=== PATIENT | male | born 1945 | race African-American/Black ===

== ENCOUNTER 2018-08-29 11:19 | Inpatient (IN) | payer MEDICARE, BC ==
[~2018-08-29] VITALS: Ht 185.4 cm; Wt 134.0 kg
[2018-08-29] MEDS ORDERED: ASPIRIN 325 MG TABLET PO ONE (11:30)
[2018-08-29] MEDS ORDERED: NITROGLYCERIN SUBLINGUAL 0.4 MG BOTTLE OF 25. SL PRN ×2 (11:30→13:30)
--- NOTE | 2018-08-29 11:31 | PHYS DOC ---
Past Medical History Past Medical History: Depression, Hypertension Past Surgical History: Cancer Surgery, Gastric Bypass Additional Past Surgical Histo: LIPOSUCTION, SKIN REDUCTION Alcohol Use: None Drug Use: None Adult General Chief Complaint Chief Complaint: CHEST PAIN HPI HPI Patient is a 73 year old male with history of depression, hypertension, who presents to the ED today complaining of chest pain. She states he was working in his yard 30 minutes ago when he developed a 7 out of 10 sharp right sided chest pain, right jaw pain and shortness of breath. Patient states he stopped doing his yard work and went back to the house. He states the pain resolved. He states he came to the ED to be evaluated. He states his blood pressure medications as well as fat burning pills. He states has not had any of these symptoms before. He is denying any chest pain right now. He states he has history of diabetes but he lost a lot of weight and his blood sugar levels improved. Review of Systems Review of Systems Constitutional: Denies fever or chills [] Eyes: Denies change in visual acuity, redness, or eye pain [] HENT: Denies nasal congestion or sore throat [] Respiratory: Reports shortness of breath. Denies cough Cardiovascular: Reports right-sided chest pain, right jaw pain GI: Denies abdominal pain, nausea, vomiting, bloody stools or diarrhea [] : Denies dysuria or hematuria [] Musculoskeletal: Denies back pain or joint pain [] Integument: Denies rash or skin lesions [] Neurologic: Denies headache, focal weakness or sensory changes [] All other systems were reviewed and found to be within normal limits, except as documented in this note. Current Medications Current Medications Current Medications Medications (Trade) Dose Ordered Sig/Giovana Start Time Stop Time Status Last Admin Dose Admin Acetaminophen (Tylenol) 650 mg PRN Q4HRS PRN 08/29/18 13:30 08/30/18 13:29 Aspirin (Liliana Aspirin) 325 mg 1X ONCE 08/29/18 11:30 08/29/18 11:31 DC 08/29/18 11:45 325 MG Morphine Sulfate (Morphine Sulfate) 2 mg PRN Q2HR PRN 08/29/18 13:30 08/30/18 13:29 Nitroglycerin (Nitrostat) 0.4 mg PRN Q5MIN PRN 08/29/18 13:30 08/30/18 13:29 Ondansetron HCl (Zofran) 4 mg PRN Q8HRS PRN 08/29/18 13:30 08/30/18 13:29 Allergies Allergies Allergies Coded Allergies Type Severity Reaction Last Updated Verified No Known Drug Allergies 04/04/15 No Physical Exam Physical Exam Constitutional: Well developed, well nourished, no acute distress, non-toxic appearance. [] HENT: Normocephalic, atraumatic, bilateral external ears normal, oropharynx moist, no oral exudates, nose normal. [] Eyes: PERRLA, EOMI, conjunctiva normal, no discharge. [] Neck: Normal range of motion, no tenderness, supple, no stridor. [] Cardiovascular:Heart rate regular rhythm, no murmur [] Lungs & Thorax: Bilateral breath sounds clear to auscultation [] Abdomen: Bowel sounds normal, soft, no tenderness, no masses, no pulsatile masses. [] Skin: Warm, dry, no erythema, no rash. [] Back: No tenderness, no CVA tenderness. [] Extremities: No tenderness, no cyanosis, no clubbing, ROM intact, no edema. [] Neurologic: Alert and oriented X 3, normal motor function, normal sensory function, no focal deficits noted. +1 edema to bilateral lower extremities. Psychologic: Affect normal, judgement normal, mood normal. [] Current Patient Data Vital Signs Vital Signs Date Time Temp Pulse Resp B/P (MAP) Pulse Ox O2 Delivery O2 Flow Rate FiO2 08/29/18 13:03 60 18 152/67 (95) 98 Room Air 08/29/18 11:20 98.5 98.5 Lab Values Laboratory Tests Test 08/29/18 11:50 White Blood Count 5.3 x10^3/uL (4.0-11.0) Red Blood Count 4.85 x10^6/uL (4.30-5.70) Hemoglobin 13.3 g/dL (13.0-17.5) Hematocrit 40.1 % (39.0-53.0) Mean Corpuscular Volume 83 fL (79-100) Mean Corpuscular Hemoglobin 27 pg (25-35) Mean Corpuscular Hemoglobin Concent 33 g/dL (31-37) Red Cell Distribution Width 15.1 % (11.5-14.5) H Platelet Count 163 x10^3/uL (140-400) Neutrophils (%) (Auto) 49 % (31-73) Lymphocytes (%) (Auto) 32 % (24-48) Monocytes (%) (Auto) 11 % (0-9) H Eosinophils (%) (Auto) 7 % (0-3) H Basophils (%) (Auto) 1 % (0-3) Neutrophils # (Auto) 2.6 x10^3uL (1.8-7.7) Lymphocytes # (Auto) 1.7 x10^3/uL (1.0-4.8) Monocytes # (Auto) 0.6 x10^3/uL (0.0-1.1) Eosinophils # (Auto) 0.4 x10^3/uL (0.0-0.7) Basophils # (Auto) 0.1 x10^3/uL (0.0-0.2) Prothrombin Time 12.3 SEC (11.7-14.0) Prothrombin Time INR 0.9 (0.8-1.1) Sodium Level 143 mmol/L (136-145) Potassium Level 4.0 mmol/L (3.5-5.1) Chloride Level 105 mmol/L (98-107) Carbon Dioxide Level 28 mmol/L (21-32) Anion Gap 10 (6-14) Blood Urea Nitrogen 16 mg/dL (8-26) Creatinine 1.1 mg/dL (0.7-1.3) Estimated GFR (Cockcroft-Gault) 79.0 BUN/Creatinine Ratio 15 (6-20) Glucose Level 111 mg/dL (70-99) H Calcium Level 9.2 mg/dL (8.5-10.1) Magnesium Level 1.9 mg/dL (1.8-2.4) Total Bilirubin 0.4 mg/dL (0.2-1.0) Aspartate Amino Transferase (AST) 24 U/L (15-37) Alanine Aminotransferase (ALT) 31 U/L (16-63) Alkaline Phosphatase 71 U/L (46-116) Creatine Kinase 291 U/L (39-308) Creatine Kinase MB (Mass) 2.0 ng/mL (0.0-3.6) Creatine Kinase MB Relative Index 0.7 % (0-4) Troponin I Quantitative < 0.017 ng/mL (0.000-0.055) YH-Uih-O-Type Natriuretic Peptide 58 pg/mL (0-449) Total Protein 8.0 g/dL (6.4-8.2) Albumin 3.8 g/dL (3.4-5.0) Albumin/Globulin Ratio 0.9 (1.0-1.7) L Laboratory Tests 08/29/18 11:50 Laboratory Tests 08/29/18 11:50 EKG EKG [address] Grimm sinus rhythm HR 66 no STEMI[] Radiology/Procedures Radiology/Procedures []PROCEDURE: PORTABLE CHEST 1V PORTABLE CHEST 1V History: CHEST PAIN Comparison: May 17, 2011 Findings: Single view of the chest is submitted. There is again degree of elevation of the left hemidiaphragm. There is no lobar infiltrate, pleural fluid, pneumothorax. There is now a right shoulder arthroplasty. Heart size is similar. There is again somewhat tortuous thoracic aorta. Impression: 1. There is no radiographic evidence of acute cardiopulmonary disease. Electronically signed by: Merlin Kimball MD (08/29/2018 11:46 AM) [id number] DICTATED and SIGNED BY: MERLIN KIMBALL MD DATE: 08/29/18 1146 Course & Med Decision Making Course & Med Decision Making Pertinent Labs and Imaging studies reviewed. (See chart for details) This is a 73-year-old male patient presented to the ED today with right sided chest pain, jaw pain, and shortness of breath symptoms began 30 minutes ago while working in his yard. He currently denies any pain/symptoms. Cardiac work up is negative. Heart score 4. Patient will be admitted. Consulted with Greg DIRECTOR CHILD for Dr. Dumont shoe sticks repairer who will f/u with patient Consulted with Dr. Jha who accepted patient for admission. Dragon Disclaimer Dragon Disclaimer This electronic medical record was generated, in whole or in part, using a voice recognition dictation system. Departure Departure Impression: Primary Impression: Chest pain Disposition: ADMITTED INPATIENT Condition: STABLE Referrals: RUDDY JUNE MD (PCP) Problem Qualifiers Primary Impression: Chest pain Chest pain type: unspecified Qualified Codes: R07.9 - Chest pain, unspecified MUTUNGA,ALEX NETWORK SUPPORT TECHNICIAN Aug 29, 2018 11:31
--- NOTE | 2018-08-29 11:49 | RAD ---
PORTABLE CHEST 1V History: CHEST PAIN Comparison: May 17, 2011 Findings: Single view of the chest is submitted. There is again degree of elevation of the left hemidiaphragm. There is no lobar infiltrate, pleural fluid, pneumothorax. There is now a right shoulder arthroplasty. Heart size is similar. There is again somewhat tortuous thoracic aorta. Impression: 1. There is no radiographic evidence of acute cardiopulmonary disease. Electronically signed by: Nigel Sage MD (08/29/2018 11:46 AM) [id number]
[2018-08-29 12:04] LABS: BASO # 0.1 x10^3/uL (0.0-0.2); BASO % 1 % (0-3); EOS # 0.4 x10^3/uL (0.0-0.7); EOS % 7 % (0-3); HEMATOCRIT 40.1 % (39.0-53.0); HEMOGLOBIN 13.3 g/dL (13.0-17.5); LYMPH # 1.7 x10^3/uL (1.0-4.8); LYMPH % 32 % (24-48); MEAN CORPUSCULAR HEMOGLOBIN 27 pg (25-35); MEAN CORPUSCULAR HGB CONC 33 g/dL (31-37); MEAN CORPUSCULAR VOLUME 83 fL (79-100); MONO # 0.6 x10^3/uL (0.0-1.1); MONO % 11 % (0-9); NEUT # 2.6 x10^3uL (1.8-7.7); NEUT % 49 % (31-73); PLATELET COUNT 163 x10^3/uL (140-400); RED BLOOD COUNT 4.85 x10^6/uL (4.30-5.70); RED CELL DISTRIBUTION WIDTH 15.1 % (11.5-14.5); WHITE BLOOD COUNT 5.3 x10^3/uL (4.0-11.0)
[2018-08-29 12:16] LABS: PROTHROMBIN TIME PATIENT 12.3 SEC (11.7-14.0)
[2018-08-29 12:29] LABS: CALCIUM 9.2 mg/dL (8.5-10.1); CREATININE 1.1 mg/dL (0.7-1.3)
[2018-08-29 12:40] LABS: ALBUMIN 3.8 g/dL (3.4-5.0); ALBUMIN/GLOBULIN RATIO 0.9 (1.0-1.7); MAGNESIUM 1.9 mg/dL (1.8-2.4); TOTAL BILIRUBIN 0.4 mg/dL (0.2-1.0)
--- NOTE | 2018-08-29 13:20 | EKG ---
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
[2018-08-29] MEDS ORDERED: ONDANSETRON PF 4 MG/2 ML VIAL. IV PRN (13:30)
[2018-08-29] MEDS ORDERED: MORPHINE SULFATE 2 MG/ML VIAL. IV PRN (13:30)
[2018-08-29] MEDS ORDERED: ACETAMINOPHEN 325 MG TABLET. PO PRN (13:30)
[2018-08-29 13:50] LABS: BILIRUBIN,URINE NEGATIVE (NEG); CLARITY,URINE CLEAR; COLOR,URINE YELLOW; NITRITE,URINE NEGATIVE (NEG); PROTEIN,URINE 30 mg/dL (NEG-TRACE); UROBILINOGEN,URINE 0.2 mg/dL (0.2 mg/dL)
[2018-08-29 14:05] LABS: BACTERIA,URINE 0 /HPF (0-FEW); RBC,URINE 0 /HPF (0-2); SQUAMOUS EPITHELIAL CELL,UR OCC /LPF; WBC,URINE OCC /HPF (0-4)
[2018-08-29] MEDS ORDERED: LABETALOL 20 MG/4 ML DISP.SYRIN. IVP PRN (14:30)
--- NOTE | 2018-08-29 14:42 | PDOC2 ---
KRYSTAL PEDERSEN ENERGY SPECIALIST 08/29/18 1442: CARDIAC CONSULT DATE OF CONSULT Date of Consult DATE: 08/29/18 TIME: 14:30 REASON FOR CONSULT Reason for Consult: Chest pain REFERRING PHYSICIAN Referring Physician: Lon SOURCE Source: Chart review, Patient HISTORY OF PRESENT ILLNESS HISTORY OF PRESENT ILLNESS This is a pleasant 73 yo male admitted for complains of chest pain. Reports that every now and then he has this chest tightness but goes away right away. He was removing weeds on hi lawn and suddenly he felt this midchest tightness and pressure, with jaw tightness on the right side associated with some SOA and diaphoresis. No palpitations, or nausea. This intensified for about 30 minutes then started fading away on the way to ED. No heartburn, past hx of PUD , CAD or any arrhythmias. He was diabetic before and was taken off meds after losing much wt after gastric sleeve in 2010 but has gained about 30 to 40 pounds in the last 4 months. Denies any recent long distance travel, VTE, falls or any other recent injury. 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 He has HTN and HLP. Negative for orthopnea or PND PAST MEDICAL HISTORY Cardiovascular: HTN, Hyperlipidemia Pulmonary: Other (XIMENA past CPAP and took self of it due to cost but repeat workup is pending) CENTRAL NERVOUS SYSTEM: Other (No pertinent history) GI: Other (prior gastric sleeve) Heme/Onc: No pertinent hx Hepatobiliary: No pertinent hx Psych: No pertinent hx Musculoskeletal: Osteoarthritis Rheumatologic: No pertinent hx Infectious disease: No pertinent hx ENT: Other (cataract) Renal/: Prostate Ca., Other (ED) Endocrine: Diabetes (past type 2) Dermatology: No pertinent hx PAST SURGICAL HISTORY Past Surgical History: Arthroscopy (RTSA), Cataract Removal, Other (prostate resection; penile implant; LHC) FAMILY HISTORY Family History noncontributory to CV SOCIAL HISTORY Smoke: Quit (30 pk yr) ALCOHOL: occassional Drugs: None Lives: with Family CURRENT MEDICATIONS CURRENT MEDICATIONS Current Medications Medications (Trade) Dose Ordered Sig/Giovana Route PRN Reason Start Time Stop Time Status Last Admin Dose Admin Aspirin (Liliana Aspirin) 325 mg 1X ONCE PO 08/29/18 11:30 08/29/18 11:31 DC 08/29/18 11:45 ALLERGIES ALLERGIES: Coded Allergies: No Known Drug Allergies (Unverified , 04/04/15) ROS Review of System 14 point ROS evaluated with pertinent positives noted per HPI PHYSICAL EXAM General: Alert, Oriented X3, Cooperative, No acute distress HEENT: Atraumatic, Mucous membr. moist/pink Lungs: Clear to auscultation, Normal air movement Heart: Regular rate (SR), Normal S1, Normal S2, Other (2/6 systolic murmur to LLS border) Extremities: No cyanosis, Other (1+ bilateral LE pitting edema) Skin: No breakdown, No significant lesion Neuro: Normal speech, Sensation intact Psych/Mental Status: Mental status NL, Mood NL MUSCULOSKELETAL: Osteoarthritic changes both hands VITALS VITALS Vital Signs Date Time Temp Pulse Resp B/P (MAP) Pulse Ox O2 Delivery O2 Flow Rate FiO2 08/29/18 13:03 60 18 152/67 (95) 98 Room Air 08/29/18 11:20 98.5 98.5 LABS Lab: Laboratory Tests Test 08/29/18 11:50 08/29/18 13:25 White Blood Count 5.3 x10^3/uL (4.0-11.0) Red Blood Count 4.85 x10^6/uL (4.30-5.70) Hemoglobin 13.3 g/dL (13.0-17.5) Hematocrit 40.1 % (39.0-53.0) Mean Corpuscular Volume 83 fL (79-100) Mean Corpuscular Hemoglobin 27 pg (25-35) Mean Corpuscular Hemoglobin Concent 33 g/dL (31-37) Red Cell Distribution Width 15.1 % (11.5-14.5) Platelet Count 163 x10^3/uL (140-400) Neutrophils (%) (Auto) 49 % (31-73) Lymphocytes (%) (Auto) 32 % (24-48) Monocytes (%) (Auto) 11 % (0-9) Eosinophils (%) (Auto) 7 % (0-3) Basophils (%) (Auto) 1 % (0-3) Neutrophils # (Auto) 2.6 x10^3uL (1.8-7.7) Lymphocytes # (Auto) 1.7 x10^3/uL (1.0-4.8) Monocytes # (Auto) 0.6 x10^3/uL (0.0-1.1) Eosinophils # (Auto) 0.4 x10^3/uL (0.0-0.7) Basophils # (Auto) 0.1 x10^3/uL (0.0-0.2) Prothrombin Time 12.3 SEC (11.7-14.0) Prothromb Time International Ratio 0.9 (0.8-1.1) Sodium Level 143 mmol/L (136-145) Potassium Level 4.0 mmol/L (3.5-5.1) Chloride Level 105 mmol/L (98-107) Carbon Dioxide Level 28 mmol/L (21-32) Anion Gap 10 (6-14) Blood Urea Nitrogen 16 mg/dL (8-26) Creatinine 1.1 mg/dL (0.7-1.3) Estimated GFR (Cockcroft-Gault) 79.0 BUN/Creatinine Ratio 15 (6-20) Glucose Level 111 mg/dL (70-99) Calcium Level 9.2 mg/dL (8.5-10.1) Magnesium Level 1.9 mg/dL (1.8-2.4) Total Bilirubin 0.4 mg/dL (0.2-1.0) Aspartate Amino Transf (AST/SGOT) 24 U/L (15-37) Alanine Aminotransferase (ALT/SGPT) 31 U/L (16-63) Alkaline Phosphatase 71 U/L (46-116) Creatine Kinase 291 U/L (39-308) Creatine Kinase MB (Mass) 2.0 ng/mL (0.0-3.6) Creatine Kinase MB Relative Index 0.7 % (0-4) Troponin I Quantitative < 0.017 ng/mL (0.000-0.055) CP-Xqd-P-Type Natriuretic Peptide 58 pg/mL (0-449) Total Protein 8.0 g/dL (6.4-8.2) Albumin 3.8 g/dL (3.4-5.0) Albumin/Globulin Ratio 0.9 (1.0-1.7) Urine Color Yellow Urine Clarity Clear Urine pH 6.0 Urine Specific [place] 1.010 Urine Protein 30 mg/dL (NEG-TRACE) Urine Glucose (UA) Negative mg/dL (NEG) Urine Ketones (Stick) Negative mg/dL (NEG) Urine Blood Negative (NEG) Urine Nitrite Negative (NEG) Urine Bilirubin Negative (NEG) Urine Urobilinogen Dipstick 0.2 mg/dL (0.2 mg/dL) Urine Leukocyte Esterase Negative (NEG) Urine RBC 0 /HPF (0-2) Urine WBC Occ /HPF (0-4) Urine Squamous Epithelial Cells Occ /LPF Urine Bacteria 0 /HPF (0-FEW) ASSESSMENT/PLAN ASSESSMENT/PLAN 1. Chest pain: UA features with anterolateral T wave changes 2. HTN: labile 3. HLP 4. Hx of DM2: taken off due to wt loss from gastric sleeve in 2010 5. Morbid obesity with XIMENA; recent 30-40 lb wt gain in 4 months. Recommendations 1. Labteolol IV PRN. will obtain accurate meds list 2. Lipids, TSH, TTE. Trend troponin 3. ASA, lovenox, 4. LHC tomorrow, risks and benefits discussed and agreeable to proceed 5. Discussed to minimize caffeine use MAKENNA HILL MD 08/29/18 1830: CARDIAC CONSULT ASSESSMENT/PLAN ASSESSMENT/PLAN Pt. seen and examined. Agree with above ACTIVE DIRECTORY SPECIALIST note. 73 y.o male with hypertension presenting with symptoms suggestive of ACS. Needs better BP control. CP may be high BP and may also be cardiac. EKG suggestive of LVH, Echo wnl. Trop negative. Discussed r/b/a to medical therapy versus stress testing versus cath - patient prefers medical therapy which is reasonable. Continue home amlodipine. Start Metoprolol 25mg XL daily. Start atorvastatin and start imdur 30mg daily KRYSTAL PEDERSEN ENERGY SPECIALIST Aug 29, 2018 14:42 MAKENNA HILL MD Aug 29, 2018 18:30
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
--- NOTE | 2018-08-29 16:32 | NUR ---
Patient arrived to room 261 via wheelchair from ER at 1632. at bedside. Patient A&OX4. No complaints of pain at this time. The patient, LAVONNE BARRERA, 73 y/o, M admitted by JENNIFER PITTMAN MD, was given written information regarding hospital policies, unit procedures and contact persons. Valuables were checked and noted. Consents signed for heart cath. went home to get list of home medications, will notify night nurse to put in computer. Will continue to monitor.
[2018-08-29] MEDS ORDERED: FLUT16SP INH (17:21)
--- NOTE | 2018-08-29 17:22 | CARD ---
MR#: [id number] Date of Study: 08/29/2018 Ordering Physician: KRYSTAL PEDERSEN, Referring Physician: JENNIFER PITTMAN, Tech: Nadine Perez APPROVED REPORT EXAM: Two-dimensional and M-mode echocardiogram with Doppler and color Doppler. Other Information Quality : GoodHR: 67bpm Rhythm : NSR INDICATION Dyspnea Acute coronary syndrome RISK FACTORS Hypertension Hyperlipidemia 2D DIMENSIONS RVDd2.6 (2.9-3.5cm)Left Atrium(2D)3.6 (1.6-4.0cm) IVSd1.7 (0.7-1.1cm)Aortic Root(2D)3.4 (2.0-3.7cm) LVDd4.8 (3.9-5.9cm)LVOT Diameter2.2 (1.8-2.4cm) PWd1.0 (0.7-1.1cm)LVDs3.1 (2.5-4.0cm) FS (%) 34.9 %SV69.4 ml LVEF(%)64.0 (>50%) Aortic Valve AoV Peak Obed.148.7cm/sAoV VTI32.0cm AO Peak GR.8.8mmHgLVOT Peak Obed.94.8cm/s AO Mean GR.5mmHgAVA (VMAX)2.48cm2 Mitral Valve MV E Nywwsdfk23.4cm/sMV DECEL NDSI227ov MV A Edsqfabk152.1cm/sE/A Ratio0.7 Pulmonary Valve PV Peak Zfrqgpdh883.1cm/s Pulmonary Vein S1 Ozmryqnb58.3cm/sD2 Lwgfmrrh04.5cm/s PVa [id number] LEFT VENTRICLE The left ventricle is normal size. There is mild to moderate concentric left ventricular hypertrophy. The left ventricular systolic function is normal and the ejection fraction is within normal range. T he Ejection Fraction is >55%. There is normal LV segmental wall motion. Transmitral Doppler flow avis james is Grade I-abnormal relaxation pattern. RIGHT VENTRICLE The right ventricle is normal size. There is normal right ventricular wall thickness. The right ventr icular systolic function is normal. ATRIA The left atrium is borderline dilated. The right atrium size is normal. The interatrial septum is int act with no evidence for an atrial septal defect or patent foramen ovale as noted on 2-D or Doppler i maging. AORTIC VALVE The aortic valve is normal in structure and function. Doppler and Color Flow revealed no significant aortic regurgitation. There is no significant aortic valvular stenosis. MITRAL VALVE The mitral valve is normal in structure and function. There is no evidence of mitral valve prolapse. There is no mitral valve stenosis. Doppler and Color Flow revealed no mitral valve regurgitation note d. TRICUSPID VALVE The tricuspid valve is normal in structure and function. Doppler and Color Flow revealed no tricuspid valve regurgitation noted. There is no tricuspid valve stenosis. PULMONIC VALVE The pulmonic valve is not well visualized. Doppler and Color Flow revealed trace pulmonic valvular re gurgitation. GREAT VESSELS The aortic root is normal in size. The IVC was not visualized. PERICARDIAL EFFUSION There is no evidence of significant pericardial effusion. Critical Notification Critical Value: No <Conclusion> The left ventricular systolic function is normal and the ejection fraction is within normal range. Th e Ejection Fraction is >55%. There is normal LV segmental wall motion. Signed by : Kavin Liu, Electronically Approved : 08/29/2018 17:22:20
[2018-08-29] MEDS ORDERED: METOPROLOL SUCC 24HR ER 25 MG TAB.ER.24H. PO ONE (19:00)
[2018-08-29] MEDS ORDERED: amLODIPine BESYLATE 5 MG TABLET PO ONE (19:00)
[2018-08-29 19:30] VITALS: BP 178/81
[2018-08-29] MEDS ORDERED: ENOXAPARIN 40 MG/0.4 ML SYRINGE. SQ SCH (21:00)
[2018-08-29] MEDS ORDERED: AMLO10TA4 PO (22:05)
[2018-08-29 23:28] VITALS: BP 128/57
[2018-08-30 03:10] LABS: HEMOGLOBIN A1C 6.6 % (4.8-5.6)
[2018-08-30 03:42] VITALS: BP 154/77
[2018-08-30 05:43] LABS: CHOLESTEROL/HDL RATIO 2.7
[2018-08-30 07:00] VITALS: BP 136/61
[2018-08-30] MEDS ORDERED: ASPIRIN ENTERIC COATED 81 MG TABLET.DR. PO SCH (08:00)
[2018-08-30] MEDS ORDERED: METO-239 PO ×2 (08:05→11:53)
[2018-08-30] MEDS ORDERED: ATOR20TA58 PO (08:05)
[2018-08-30] MEDS ORDERED: ASPI-612 PO (08:05)
[2018-08-30] MEDS ORDERED: ISOS30TA4 PO (08:05)
[2018-08-30 08:41] LABS: BASO # 0.1 x10^3/uL (0.0-0.2); BASO % 1 % (0-3); EOS # 0.4 x10^3/uL (0.0-0.7); EOS % 6 % (0-3); HEMATOCRIT 40.6 % (39.0-53.0); HEMOGLOBIN 13.5 g/dL (13.0-17.5); LYMPH # 1.8 x10^3/uL (1.0-4.8); LYMPH % 33 % (24-48); MEAN CORPUSCULAR HEMOGLOBIN 28 pg (25-35); MEAN CORPUSCULAR HGB CONC 33 g/dL (31-37); MEAN CORPUSCULAR VOLUME 85 fL (79-100); MONO # 0.6 x10^3/uL (0.0-1.1); MONO % 11 % (0-9); NEUT # 2.7 x10^3uL (1.8-7.7); NEUT % 49 % (31-73); PLATELET COUNT 139 x10^3/uL (140-400); RED BLOOD COUNT 4.79 x10^6/uL (4.30-5.70); RED CELL DISTRIBUTION WIDTH 15.8 % (11.5-14.5); WHITE BLOOD COUNT 5.5 x10^3/uL (4.0-11.0)
[2018-08-30] MEDS ORDERED: METOPROLOL SUCC 24HR ER 25 MG TAB.ER.24H. PO SCH (09:00)
[2018-08-30] MEDS ORDERED: ISOSORBIDE MONONITRATE ER 30 MG TAB.ER.24H PO SCH (09:00)
[2018-08-30] MEDS ORDERED: amLODIPine BESYLATE 10 MG TABLET PO SCH (09:00)
--- NOTE | 2018-08-30 09:23 | PDOC3 ---
Discharge Summary Visit Information Date of Admission: Aug 29, 2018 Date of Discharge: Aug 30, 2018 Final Diagnosis Problems Medical Problems: (1) Chest pain Status: Acute Brief Hospital Course Allergies Allergies Coded Allergies Type Severity Reaction Last Updated Verified No Known Drug Allergies 04/04/15 No Vital Signs Vital Signs Date Time Temp Pulse Resp B/P (MAP) Pulse Ox O2 Delivery O2 Flow Rate FiO2 08/30/18 08:13 57 144/67 08/30/18 07:00 97.5 16 97 Room Air 97.5 Lab Results Laboratory Tests Test 08/29/18 11:50 08/29/18 13:25 08/29/18 14:45 08/29/18 18:05 White Blood Count 5.3 x10^3/uL (4.0-11.0) Red Blood Count 4.85 x10^6/uL (4.30-5.70) Hemoglobin 13.3 g/dL (13.0-17.5) Hematocrit 40.1 % (39.0-53.0) Mean Corpuscular Volume 83 fL (79-100) Mean Corpuscular Hemoglobin 27 pg (25-35) Mean Corpuscular Hemoglobin Concent 33 g/dL (31-37) Red Cell Distribution Width 15.1 % (11.5-14.5) Platelet Count 163 x10^3/uL (140-400) Neutrophils (%) (Auto) 49 % (31-73) Lymphocytes (%) (Auto) 32 % (24-48) Monocytes (%) (Auto) 11 % (0-9) Eosinophils (%) (Auto) 7 % (0-3) Basophils (%) (Auto) 1 % (0-3) Neutrophils # (Auto) 2.6 x10^3uL (1.8-7.7) Lymphocytes # (Auto) 1.7 x10^3/uL (1.0-4.8) Monocytes # (Auto) 0.6 x10^3/uL (0.0-1.1) Eosinophils # (Auto) 0.4 x10^3/uL (0.0-0.7) Basophils # (Auto) 0.1 x10^3/uL (0.0-0.2) Prothrombin Time 12.3 SEC (11.7-14.0) Prothromb Time International Ratio 0.9 (0.8-1.1) Sodium Level 143 mmol/L (136-145) Potassium Level 4.0 mmol/L (3.5-5.1) Chloride Level 105 mmol/L (98-107) Carbon Dioxide Level 28 mmol/L (21-32) Anion Gap 10 (6-14) Blood Urea Nitrogen 16 mg/dL (8-26) Creatinine 1.1 mg/dL (0.7-1.3) Estimated GFR (Cockcroft-Gault) 79.0 BUN/Creatinine Ratio 15 (6-20) Glucose Level 111 mg/dL (70-99) Hemoglobin A1c 6.6 % (4.8-5.6) Calcium Level 9.2 mg/dL (8.5-10.1) Magnesium Level 1.9 mg/dL (1.8-2.4) Total Bilirubin 0.4 mg/dL (0.2-1.0) Aspartate Amino Transf (AST/SGOT) 24 U/L (15-37) Alanine Aminotransferase (ALT/SGPT) 31 U/L (16-63) Alkaline Phosphatase 71 U/L (46-116) Creatine Kinase 291 U/L (39-308) Creatine Kinase MB (Mass) 2.0 ng/mL (0.0-3.6) Creatine Kinase MB Relative Index 0.7 % (0-4) Troponin I Quantitative < 0.017 ng/mL (0.000-0.055) < 0.017 ng/mL (0.000-0.055) < 0.017 ng/mL (0.000-0.055) MD-Jwb-T-Type Natriuretic Peptide 58 pg/mL (0-449) Total Protein 8.0 g/dL (6.4-8.2) Albumin 3.8 g/dL (3.4-5.0) Albumin/Globulin Ratio 0.9 (1.0-1.7) Thyroid Stimulating Hormone (TSH) 2.295 uIU/mL (0.358-3.74) Urine Color Yellow Urine Clarity Clear Urine pH 6.0 Urine Specific [place] 1.010 Urine Protein 30 mg/dL (NEG-TRACE) Urine Glucose (UA) Negative mg/dL (NEG) Urine Ketones (Stick) Negative mg/dL (NEG) Urine Blood Negative (NEG) Urine Nitrite Negative (NEG) Urine Bilirubin Negative (NEG) Urine Urobilinogen Dipstick 0.2 mg/dL (0.2 mg/dL) Urine Leukocyte Esterase Negative (NEG) Urine RBC 0 /HPF (0-2) Urine WBC Occ /HPF (0-4) Urine Squamous Epithelial Cells Occ /LPF Urine Bacteria 0 /HPF (0-FEW) Test 08/30/18 03:40 08/30/18 03:45 Triglycerides Level 94 mg/dL (0-150) Cholesterol Level 247 mg/dL (0-200) LDL Cholesterol, Calculated 138 mg/dL (0-100) VLDL Cholesterol, Calculated 19 mg/dL (0-40) Non-HDL Cholesterol Calculated 157 mg/dL (0-129) HDL Cholesterol 90 mg/dL (40-60) Cholesterol/HDL Ratio 2.7 White Blood Count 5.5 x10^3/uL (4.0-11.0) Red Blood Count 4.79 x10^6/uL (4.30-5.70) Hemoglobin 13.5 g/dL (13.0-17.5) Hematocrit 40.6 % (39.0-53.0) Mean Corpuscular Volume 85 fL (79-100) Mean Corpuscular Hemoglobin 28 pg (25-35) Mean Corpuscular Hemoglobin Concent 33 g/dL (31-37) Red Cell Distribution Width 15.8 % (11.5-14.5) Platelet Count 139 x10^3/uL (140-400) Neutrophils (%) (Auto) 49 % (31-73) Lymphocytes (%) (Auto) 33 % (24-48) Monocytes (%) (Auto) 11 % (0-9) Eosinophils (%) (Auto) 6 % (0-3) Basophils (%) (Auto) 1 % (0-3) Neutrophils # (Auto) 2.7 x10^3uL (1.8-7.7) Lymphocytes # (Auto) 1.8 x10^3/uL (1.0-4.8) Monocytes # (Auto) 0.6 x10^3/uL (0.0-1.1) Eosinophils # (Auto) 0.4 x10^3/uL (0.0-0.7) Basophils # (Auto) 0.1 x10^3/uL (0.0-0.2) Laboratory Tests Test 08/29/18 11:50 08/29/18 13:25 08/29/18 14:45 08/29/18 18:05 White Blood Count 5.3 x10^3/uL (4.0-11.0) Red Blood Count 4.85 x10^6/uL (4.30-5.70) Hemoglobin 13.3 g/dL (13.0-17.5) Hematocrit 40.1 % (39.0-53.0) Mean Corpuscular Volume 83 fL (79-100) Mean Corpuscular Hemoglobin 27 pg (25-35) Mean Corpuscular Hemoglobin Concent 33 g/dL (31-37) Red Cell Distribution Width 15.1 % (11.5-14.5) Platelet Count 163 x10^3/uL (140-400) Neutrophils (%) (Auto) 49 % (31-73) Lymphocytes (%) (Auto) 32 % (24-48) Monocytes (%) (Auto) 11 % (0-9) Eosinophils (%) (Auto) 7 % (0-3) Basophils (%) (Auto) 1 % (0-3) Neutrophils # (Auto) 2.6 x10^3uL (1.8-7.7) Lymphocytes # (Auto) 1.7 x10^3/uL (1.0-4.8) Monocytes # (Auto) 0.6 x10^3/uL (0.0-1.1) Eosinophils # (Auto) 0.4 x10^3/uL (0.0-0.7) Basophils # (Auto) 0.1 x10^3/uL (0.0-0.2) Prothrombin Time 12.3 SEC (11.7-14.0) Prothromb Time International Ratio 0.9 (0.8-1.1) Sodium Level 143 mmol/L (136-145) Potassium Level 4.0 mmol/L (3.5-5.1) Chloride Level 105 mmol/L (98-107) Carbon Dioxide Level 28 mmol/L (21-32) Anion Gap 10 (6-14) Blood Urea Nitrogen 16 mg/dL (8-26) Creatinine 1.1 mg/dL (0.7-1.3) Estimated GFR (Cockcroft-Gault) 79.0 BUN/Creatinine Ratio 15 (6-20) Glucose Level 111 mg/dL (70-99) Hemoglobin A1c 6.6 % (4.8-5.6) Calcium Level 9.2 mg/dL (8.5-10.1) Magnesium Level 1.9 mg/dL (1.8-2.4) Total Bilirubin 0.4 mg/dL (0.2-1.0) Aspartate Amino Transf (AST/SGOT) 24 U/L (15-37) Alanine Aminotransferase (ALT/SGPT) 31 U/L (16-63) Alkaline Phosphatase 71 U/L (46-116) Creatine Kinase 291 U/L (39-308) Creatine Kinase MB (Mass) 2.0 ng/mL (0.0-3.6) Creatine Kinase MB Relative Index 0.7 % (0-4) Troponin I Quantitative < 0.017 ng/mL (0.000-0.055) < 0.017 ng/mL (0.000-0.055) < 0.017 ng/mL (0.000-0.055) VQ-Kqx-Y-Type Natriuretic Peptide 58 pg/mL (0-449) Total Protein 8.0 g/dL (6.4-8.2) Albumin 3.8 g/dL (3.4-5.0) Albumin/Globulin Ratio 0.9 (1.0-1.7) Thyroid Stimulating Hormone (TSH) 2.295 uIU/mL (0.358-3.74) Urine Color Yellow Urine Clarity Clear Urine pH 6.0 Urine Specific [place] 1.010 Urine Protein 30 mg/dL (NEG-TRACE) Urine Glucose (UA) Negative mg/dL (NEG) Urine Ketones (Stick) Negative mg/dL (NEG) Urine Blood Negative (NEG) Urine Nitrite Negative (NEG) Urine Bilirubin Negative (NEG) Urine Urobilinogen Dipstick 0.2 mg/dL (0.2 mg/dL) Urine Leukocyte Esterase Negative (NEG) Urine RBC 0 /HPF (0-2) Urine WBC Occ /HPF (0-4) Urine Squamous Epithelial Cells Occ /LPF Urine Bacteria 0 /HPF (0-FEW) Test 08/30/18 03:40 08/30/18 03:45 Triglycerides Level 94 mg/dL (0-150) Cholesterol Level 247 mg/dL (0-200) LDL Cholesterol, Calculated 138 mg/dL (0-100) VLDL Cholesterol, Calculated 19 mg/dL (0-40) Non-HDL Cholesterol Calculated 157 mg/dL (0-129) HDL Cholesterol 90 mg/dL (40-60) Cholesterol/HDL Ratio 2.7 White Blood Count 5.5 x10^3/uL (4.0-11.0) Red Blood Count 4.79 x10^6/uL (4.30-5.70) Hemoglobin 13.5 g/dL (13.0-17.5) Hematocrit 40.6 % (39.0-53.0) Mean Corpuscular Volume 85 fL (79-100) Mean Corpuscular Hemoglobin 28 pg (25-35) Mean Corpuscular Hemoglobin Concent 33 g/dL (31-37) Red Cell Distribution Width 15.8 % (11.5-14.5) Platelet Count 139 x10^3/uL (140-400) Neutrophils (%) (Auto) 49 % (31-73) Lymphocytes (%) (Auto) 33 % (24-48) Monocytes (%) (Auto) 11 % (0-9) Eosinophils (%) (Auto) 6 % (0-3) Basophils (%) (Auto) 1 % (0-3) Neutrophils # (Auto) 2.7 x10^3uL (1.8-7.7) Lymphocytes # (Auto) 1.8 x10^3/uL (1.0-4.8) Monocytes # (Auto) 0.6 x10^3/uL (0.0-1.1) Eosinophils # (Auto) 0.4 x10^3/uL (0.0-0.7) Basophils # (Auto) 0.1 x10^3/uL (0.0-0.2) Brief Hospital Course 73 yo male admitted for complains of chest pain. He was removing weeds on hi lawn and suddenly he felt this midchest tightness and pressure lasting about 30 minutes then improved No heartburn, past hx of PUD, CAD or any arrhythmias. Denies any recent long distance travel, VTE, falls. 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 patient admitted to hospitalist service for unstable angina. EKG suggestive of LVH, Echo wnl. Trop negative. cards consulted. Discussed was had about medical therapy versus stress testing versus cath and patient prefers medical therapy. will pursue tight BP contol. Continue home amlodipine. Start Metoprolol 25mg XL daily. Start atorvastatin and start imdur 30mg daily and continue ASA therapy. patient chest pain free at time of discharge. Discharge Information Condition at Discharge: Improved Follow Up: Weeks Disposition/Orders: D/C to Home Scheduled Amlodipine Besylate (Norvasc) 10 Mg Tablet, 10 MG PO DAILY for htn, (Reported) Entered as Reported by: Karan Carlisle on 08/29/182204 Last Taken: UNKNOWN on Unknown Date & Time Last Action: New Order on 08/29 by Karan Carlisle Aspirin (Aspirin Ec) 81 Mg Tablet.dr, 81 MG PO DAILYWBKFT for chest pain for 30 Days, #30 Prescribed by: ROBERTO POLO MD on 08/30/18 0805 Atorvastatin Calcium (Atorvastatin Calcium) 20 Mg Tablet, 20 MG PO QHS for hld for 30 Days, #30 Prescribed by: ROBERTO POLO MD on 08/30/18 0805 Isosorbide Mononitrate (Isosorbide Mononitrate Er) 30 Mg Tab.er.24h, 30 MG PO DAILY for chest pain for 30 Days, #30 Prescribed by: ROBERTO POLO MD on 08/30/18 0805 Metoprolol Succinate (Metoprolol Succinate ( Xl )) 25 Mg Tab.er.24h, 25 MG PO DAILY for htn for 30 Days, #30 Prescribed by: ROBERTO POLO MD on 08/30/18 0805 Scheduled PRN Fluticasone Propionate (Fluticasone Propionate Nasal [place]) 16 Gm [place].susp, 2 SPRAYS INH PRN DAILY PRN for ALLERGIES, (Reported) Entered as Reported by: STEPH FLORES on 08/29/181720 Last Action: New Order on 08/29/181720 by ROBERTO ROWE MD Aug 30, 2018 09:23
--- NOTE | 2018-08-30 10:04 | RAD ---
Right lower extremity venous ultrasound, 08/30/2018 : History: Right leg pain and swelling Duplex evaluation including grayscale, color flow and spectral Doppler analysis was performed. The femoral and popliteal veins show no filling defects to suggest DVT. The visualized deep veins in the right calf are unremarkable. IMPRESSION: There is no sonographic evidence of deep vein thrombosis in the right lower extremity Electronically signed by: Sunny Dodge MD (08/30/2018 10:01 AM) [facility]
[2018-08-30 11:15] VITALS: BP 115/57
--- NOTE | 2018-08-30 12:06 | PDOC ---
CARDIO Progress Notes Date and Time Date of Service 08/30/2018 Time of Evaluation 1200 Subjective Subjective: No Chest Pain, No shortness of breath, No Palpitations Vitals Vitals Vital Signs Date Time Temp Pulse Resp B/P (MAP) Pulse Ox O2 Delivery O2 Flow Rate FiO2 08/30/18 11:15 97.6 58 16 115/57 (76) 96 Room Air 97.6 Weight Weight [ ] Input and Output Intake and Output Intake and Output 08/30/18 06:59 Intake Total 0 ml Balance 0 ml Intake Oral 0 ml # Voids 2 Laboratory Labs Laboratory Tests Test 08/29/18 13:25 08/29/18 14:45 08/29/18 18:05 08/30/18 03:40 Urine Color Yellow Urine Clarity Clear Urine pH 6.0 Urine Specific [place] 1.010 Urine Protein 30 mg/dL (NEG-TRACE) Urine Glucose (UA) Negative mg/dL (NEG) Urine Ketones (Stick) Negative mg/dL (NEG) Urine Blood Negative (NEG) Urine Nitrite Negative (NEG) Urine Bilirubin Negative (NEG) Urine Urobilinogen Dipstick 0.2 mg/dL (0.2 mg/dL) Urine Leukocyte Esterase Negative (NEG) Urine RBC 0 /HPF (0-2) Urine WBC Occ /HPF (0-4) Urine Squamous Epithelial Cells Occ /LPF Urine Bacteria 0 /HPF (0-FEW) Troponin I Quantitative < 0.017 ng/mL (0.000-0.055) < 0.017 ng/mL (0.000-0.055) Triglycerides Level 94 mg/dL (0-150) Cholesterol Level 247 mg/dL (0-200) LDL Cholesterol, Calculated 138 mg/dL (0-100) VLDL Cholesterol, Calculated 19 mg/dL (0-40) Non-HDL Cholesterol Calculated 157 mg/dL (0-129) HDL Cholesterol 90 mg/dL (40-60) Cholesterol/HDL Ratio 2.7 Test 08/30/18 03:45 White Blood Count 5.5 x10^3/uL (4.0-11.0) Red Blood Count 4.79 x10^6/uL (4.30-5.70) Hemoglobin 13.5 g/dL (13.0-17.5) Hematocrit 40.6 % (39.0-53.0) Mean Corpuscular Volume 85 fL (79-100) Mean Corpuscular Hemoglobin 28 pg (25-35) Mean Corpuscular Hemoglobin Concent 33 g/dL (31-37) Red Cell Distribution Width 15.8 % (11.5-14.5) Platelet Count 139 x10^3/uL (140-400) Neutrophils (%) (Auto) 49 % (31-73) Lymphocytes (%) (Auto) 33 % (24-48) Monocytes (%) (Auto) 11 % (0-9) Eosinophils (%) (Auto) 6 % (0-3) Basophils (%) (Auto) 1 % (0-3) Neutrophils # (Auto) 2.7 x10^3uL (1.8-7.7) Lymphocytes # (Auto) 1.8 x10^3/uL (1.0-4.8) Monocytes # (Auto) 0.6 x10^3/uL (0.0-1.1) Eosinophils # (Auto) 0.4 x10^3/uL (0.0-0.7) Basophils # (Auto) 0.1 x10^3/uL (0.0-0.2) Physical Exam HEENT: Neck Supple W Full Motion Chest: Symmetric LUNGS: Clear to Auscultation (SR) Heart: S1S2, RRR Abdomen: Soft N/T Extremities: No Calf Tenderness Neurology: alert, oriented, follow commands Assessment Assessment 1. Chest pain: UA features with anterolateral T wave changes. no further CP overnight. trops normal . EF and WM nml 2. HTN: labile 3. HLP 4. Hx of DM2: taken off due to wt loss from gastric sleeve in 2010. A1C 6.6 defer to PCP 5. Morbid obesity with XIMENA; recent 30-40 lb wt gain in 4 months. Recommendations 1. Continue with secondary prevention measures. Start on statin. Continue current BP meds but will decrease BB with episodes of SB lowest in the 40s. 2. Pt changed his mind about LHC and wants to do medical therapy. 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 3. Discussed to minimize caffeine use KRYSTAL PEDERSEN APRN Aug 30, 2018 12:06
[2018-08-30] MEDS ORDERED: METF500T16 PO (12:09)
--- NOTE | 2018-08-30 14:52 | NUR ---
Discharge Note: LAVONNE BARRERA [address] [place] [address] Discharge instructions and discharge home medications reviewed with Patient and a copy given. All questions have been answered and understanding verbalized. The following instructions and handouts were given: new medication info, CP info, HTN info, discharge instructions. Discontinued lines and drains: Peripheral IV intact. Patient discharged to Home or Self Care with Spouse via Wheelchair at 1455.
[2018-08-30] MEDS ORDERED: ATORVASTATIN CALCIUM 20 MG TABLET PO SCH (21:00)
[2018-08-31] MEDS ORDERED: METOPROLOL SUCC 24HR ER 25 MG TAB.ER.24H. PO SCH (09:00)
== END 2018-08-30 14:55 | disposition home or self-care (01) | DRG 311 ==
LOC: ER 11:19 → ED HOLD 13:21 → 2 SOUTH 16:33
PROVIDERS: ADMIT Family Medicine; ATTEND Family Medicine
DX: I20.0 Unstable angina (principal); F32.9 Major depressive disorder, single episode, unspecified; M19.90 Unspecified osteoarthritis, unspecified site; E66.9 Obesity, unspecified; I10 Essential (primary) hypertension; E11.9 Type 2 diabetes mellitus without complications; E78.5 Hyperlipidemia, unspecified; G47.33 Obstructive sleep apnea (adult) (pediatric); Z96.649 Presence of unspecified artificial hip joint; M19.011 Primary osteoarthritis, right shoulder; Z98.84 Bariatric surgery status; Z85.46 Personal history of malignant neoplasm of prostate; Z82.49 Family history of ischemic heart disease and other diseases of the circulatory system; Z79.899 Other long term (current) drug therapy; E66.01 Morbid (severe) obesity due to excess calories; Z68.39 Body mass index [BMI] 39.0-39.9, adult
CPT/HCPCS: 36415; 71045; 80053; 80061; 81001; 82553; 83036; 83735; 83880; 84443; 84484; 85025; 85610; 93005; 93306; 93971; 96372; J1650; 99285-25